=== PATIENT | male | born 1955 | race Caucasian/White ===

== ENCOUNTER 2023-01-24 08:06 | Day surgery (SDC) | payer MEDICARE, MEDICAID ==
[2023-01-24] VITALS (17 sets, daily range): BP systolic 122–184; BP diastolic 68–94; PULSE 71–95; RESP 10–18; TEMP 97; O2SAT 96–100
[~2023-01-24] VITALS: Ht 175.3 cm; Wt 89.9 kg
[~2023-01-24 08:06] MED LIST: AMLO10TA PO; BUPR1FIL3 SL; BUSP-28 PO; CLON0.1T PO; ENAL10TA78 PO; LIDOcaine 1% w/EPI 1:100,000 inj. MDV 50 ML VIAL ONE; cefazolin 2gm/D5W 100mL 100 ML IV ONE; cocaine 4% topical solution 4ml bottle ONE; epiNEPHrine 1 mg/ml 30ml MDV ONE; famotidine 20mg tablet PO ONE; mupirocin 2% ointment 22GM ONE; oxymetazoline 15 ML nasal spray NS ONE; ringers solution, lacted 1,000 ML IV SCH; tranexamic acid 100mg/ml inj. ONE; tranexamic acid inj. 1,000 MG in normal saline IV soln 100ML IV ONE
[2023-01-24] MEDS ORDERED: fentaNYL/PF 50MCG/1 ML 2ML syringe ONE (10:14)
[2023-01-24] MEDS ORDERED: midazolam 1 mg/ML 2ml injection ONE (10:15)
[2023-01-24] MEDS ORDERED: sevoflurane 250ml liquid IH ONE (10:19)
[2023-01-24] MEDS ORDERED: propofol inj 20 ML IV ONE (10:53)
[2023-01-24] MEDS ORDERED: glycopyrrolate 0.2mg/ml inj ONE (10:53)
[2023-01-24] MEDS ORDERED: LIDOcaine 2% (20mg/ml) 5ml vial ONE (10:53)
[2023-01-24] MEDS ORDERED: dexamethasone sod phosphate 4mg/ml inj. ONE (10:53)
[2023-01-24] MEDS ORDERED: rocuronium 10mg/ml inj IV ONE (10:53)
[2023-01-24] MEDS ORDERED: neostigmine methylsulfate 1 MG/ML 10ml vial ONE (10:53)
[2023-01-24] MEDS ORDERED: ondansetron/PF 4mg/2ml inj ONE (10:53)
[2023-01-24] MEDS ORDERED: cefTAZidime 1gm inj ONE (11:00)
[2023-01-24] MEDS ORDERED: mupirocin 2% cream 15gm TP ONE (11:15)
[2023-01-24] MEDS ORDERED: epiNEPHrine 1 mg/ml 30ml MDV ENDO ONE (11:15)
[2023-01-24] MEDS ORDERED: LIDOcaine 1% w/EPI 1:100,000 30ml vial (MDV) IJ ONE (11:15)
[2023-01-24] MEDS ORDERED: cocaine 4% topical solution 4ml bottle TP ONE (11:20)
[2023-01-24] MEDS ORDERED: oxymetazoline 15 ML nasal spray NS ONE (11:20)
[2023-01-24] MEDS ORDERED: cefTAZidime 1gm inj IVT ONE (11:32)
[2023-01-24] MEDS ORDERED: meperidine/PF 25mg/ml syringe ONE (12:12)
[2023-01-24] MEDS ORDERED: meperidine/PF 25mg/ml syringe IV PRN ×3 (12:15)
[2023-01-24] MEDS ORDERED: proCHLORperazine 10 MG/2 ml inj IV PRN (12:15)
[2023-01-24] MEDS ORDERED: morphine 2 MG/ML inj. syringe IV PRN (12:15)
[2023-01-24] MEDS ORDERED: ringers solution, lacted 1,000 ML IV SCH (12:15)
[2023-01-24] MEDS ORDERED: ondansetron/PF 4mg/2ml inj IV PRN (12:15)
[2023-01-24] MEDS ORDERED: hydrALAZINE 20mg/ml inj. IV PRN (12:15)
[2023-01-24] MEDS ORDERED: salt irrigation nasal spray 45 ML SPRAY NS PRN (13:05)
[2023-01-24] MEDS ORDERED: mupirocin 2% nasal ointment 1gm UD NS ONE (13:05)
[2023-01-24] MEDS: morphine 4 MG/ML inj SYRINge IV PRN ×2 (13:14→13:24)
[2023-01-24] MEDS: labetalol 20mg/4ml (5mg/ml) syringe IV PRN ×3 (13:25→13:48)
[2023-01-24] MEDS ORDERED: acetaminophen 1,000mg/100ml IV 100 ML IV ONE (13:35)
[2023-01-24] MEDS ORDERED: HYDROmorphone/PF 0.2 MG/ML SYRINGE IV PRN ×2 (13:35)
[2023-01-24] MEDS ORDERED: HYDROcodone/acetaminophen 5mg/325mg tablet PO ONE (14:15)
== END 2023-01-24 14:29 | disposition home or self-care (01) ==
LOC: PAS 08:06
PROVIDERS: ATTEND Otolaryngology
DX: J34.2 Deviated nasal septum (principal); J34.3 Hypertrophy of nasal turbinates; J32.8 Other chronic sinusitis; I10 Essential (primary) hypertension; K21.9 Gastro-esophageal reflux disease without esophagitis; M19.90 Unspecified osteoarthritis, unspecified site; F41.9 Anxiety disorder, unspecified; F32.A Depression, unspecified; Z79.899 Other long term (current) drug therapy; Z96.651 Presence of right artificial knee joint; Z86.19 Personal history of other infectious and parasitic diseases
CPT/HCPCS: 30140; 30520; 31253; 31267; 61782; 82948; 93005; A6402; J0131; J0171; J0690; J0713; J1100; J1170; J2175; J2250; J2270; J2405; J2704; J2710; J3010; J3490; J7030; J7050; J7120; Z7506; Z7508; Z7512; A4618; A6449; A7000